=== PATIENT | female | born 1995 | race Two or more races ===

== ENCOUNTER 2021-09-04 16:15 | Outpatient (CLI) | payer OTHER, SELFPAY ==
[2021-09-04 18:16] LABS: Hemoglobin 13.4 g/dL (12.0-15.0); Mean Corp Hgb Conc 34.4 g/dL (32-36); Mean Corpuscular Volume 87.2 fL (81-99); Mean Platelet Vol. 9.6 fl (6.2-12.0); Platelet Count 320 K/mm3 (150-450); RBC Distribution Width CV 11.7 % (11.6-14.6); RBC Distribution Width SD 37.4 fl (35.1-43.9); Red Blood Count 4.47 M/mm3 (4.2-5.4); White Blood Count 6.1 K/mm3 (4.4-11.0)
[2021-09-04 18:41] LABS: Anion Gap 5 (5-15); BUN 19 mg/dL (7-18); BUN/Creat Ratio 18.4 RATIO (10-20); Calcium,Total 9.7 mg/dL (8.5-10.1); Chloride 102 mmol/L (98-107); Creatinine, Serum 1.03 mg/dL (0.55-1.02); EST Glomerular Filtration Rate 69 mL/min (>60); Est Glom Filt Rate - Afr Amer 84 mL/min (>60); Glucose 94 mg/dL (74-106); Potassium 3.8 mmol/L (3.5-5.1); Sodium Level 133 mmol/L (136-145)
== END 2021-09-04 23:59 | disposition home or self-care (01) ==
LOC: MFPLAB 16:19
PROVIDERS: PCP Family Medicine; Referring Provider Family Medicine; Visit Provider Family Medicine
DX: R55 Syncope and collapse (principal)
CPT/HCPCS: 36415; 80048; 83735; 84443; 85027

== ENCOUNTER → 2021-10-02 | Outpatient (CLI) | payer OTHER, SELFPAY ==
--- NOTE | 2021-10-02 13:56 | ECHOD_ITS ---
Reason For Study: SYNCOPE & COLLAPSE Procedure This was a 2D Doppler, Color Flow transthoracic echocardiogram. Exam performed in department. Left Ventricle Normal LV size. Left ventricular systolic function is normal. The estimated ejection fraction is 55 %. No regional wall motion abnormalities noted. Right Ventricle Normal RV size. Normal systolic function. Atria Normal left atrium. Normal right atrium. Bubble contrast study negative for right to left interatrial shunt. Mitral Valve Normal mitral valve. Trivial eccentric mitral valve insufficiency. Tricuspid Valve Normal tricuspid valve. Mild tricuspid valve insufficiency. Aortic Valve Normal aortic valve. Trisinus/trileaflet aortic valve. Pulmonic Valve Normal pulmonic valve. Great Vessels Normal aortic root. The pulmonary artery is normal size. Normal inferior vena cava. Pericardium/Pleural No pericardial effusion. Medication 22 gauge I.V. with prn adaptor inserted into left arm. Performed a rapid injection of agitated mix of 9 cc saline and 1cc air to assess for atrial septal defect. MMode/2D Measurements & Calculations LVIDd: 4.7 cm IVSd: 0.57 cm Ao root diam: 2.7 cm LVIDs: 3.2 cm LVPWd: 0.72 cm RVDd: 3.2 cm FS: 32.6 % LAV(MOD-bp): 29.8 ml LVAd ap4: 27.9 cm2 SV(MOD-sp4): 43.2 ml LAV(MOD-bp) Indexed: 17.6 ml/m2 LVLd ap4: 7.7 cm LAV(MOD-sp2): 30.4 ml EDV(MOD-sp4): 84.1 ml LAV(MOD-sp4): 28.4 ml EDV(sp4-el): 86.4 ml LVAs ap4: 17.6 cm2 LVLs ap4: 6.6 cm ESV(MOD-sp4): 40.9 ml ESV(sp4-el): 39.8 ml EF(MOD-sp4): 51.4 % EF(sp4-el): 54.0 % SV(sp4-el): 46.7 ml LA A4 area: 12.0 cm2 LA dimension(2D): 2.9 cm RA A4 area: 10.6 cm2 Time Measurements MV dec time: 0.21 sec Doppler Measurements & Calculations MV E max harinder: 83.1 cm/sec Lat Peak E' Harinder: 18.9 cm/sec Med Peak E' Harinder: 16.6 cm/sec MV A max harinder: 59.4 cm/sec E/E' lat: 4.4 E/E' med: 5.0 MV E/A: 1.4 Ao V2 max: 125.1 cm/sec LV V1 max: 103.2 cm/sec PA V2 max: 93.9 cm/sec Ao max P.3 mmHg LV V1 max P.3 mmHg TR max harinder: 209.3 cm/sec TR max P.5 mmHg ECHO/Echo Complete Interpretation Summary Normal LV size. Left ventricular systolic function is normal. The estimated ejection fraction is 55 %. Bubble contrast study negative for right to left interatrial shunt. Mild tricuspid valve insufficiency. Ordering Physician: Manjeet Jacobson Referring Physician: Manjeet Jacobson Performed By: Melita Oleary RDCS
== END | disposition home or self-care (01) ==
LOC: CVS 13:54
PROVIDERS: PCP Family Medicine; Referring Provider Family Medicine; Visit Provider Family Medicine
DX: Z00.00 Encounter for general adult medical examination without abnormal findings (principal); R55 Syncope and collapse
CPT/HCPCS: 93306; A4216

== ENCOUNTER → 2021-11-14 | Outpatient (CLI) | payer OTHER, SELFPAY ==
[2021-11-14 09:21] LABS: Absolute Lymphocyte Count 2.43 X10^3/uL (0.83-4.51); Absolute Neutrophil Count 2.3 X10^3/uL (2.0-7.7); Basophil# 0.05 X10^3/uL; Basophil% 0.9 % (0-1); Eosinophil# 0.12 X10^3/uL; Eosinophils% 2.2 % (0-5); Hematocrit 44.7 % (37-47); Hemoglobin 15.3 g/dL (12.0-15.0); Lymphocyte # 2.43 X10^3/ul (0.83-4.51); Lymphocyte % 45.4 % (19-41); Mean Corp Hgb Conc 34.2 g/dL (32-36); Mean Corpuscular Hgb 30.1 pg (27.0-32.0); Mean Platelet Vol. 9.2 fl (6.2-12.0); Monocyte% 7.5 % (0-10); NRBC Flagged by Analyzer 0 % (0-5); Neutrophil # 2.33 X10^3/uL (2.7-7.7); Neutrophil % 43.6 % (47-70); Platelet Count 325 K/mm3 (150-450); RBC Distribution Width CV 11.6 % (11.6-14.6); RBC Distribution Width SD 37.5 fl (35.1-43.9); Red Blood Count 5.08 M/mm3 (4.2-5.4); White Blood Count 5.4 K/mm3 (4.4-11.0)
[2021-11-14 09:42] LABS: Internal QC Validated? YES +Cl - CLEAR BKGD; Pregnancy, Serum, hCG Quali. NEGATIVE Negative
[2021-11-14 09:54] LABS: Anion Gap 4 (5-15); BUN 20 mg/dL (7-18); BUN/Creat Ratio 17.2 RATIO (10-20); Calcium,Total 9.7 mg/dL (8.5-10.1); Chloride 103 mmol/L (98-107); Creatinine, Serum 1.16 mg/dL (0.55-1.02); EST Glomerular Filtration Rate 60 mL/min (>60); Est Glom Filt Rate - Afr Amer 73 mL/min (>60); Glucose 98 mg/dL (74-106); Sodium Level 134 mmol/L (136-145)
--- NOTE | 2021-11-14 20:50 | PCM.TILTTABL ---
Summary Pre Test Resting HR: 84 Pre Test Resting BP: 110/73 Minimum Test HR: 47 Maximum Test HR: 166 Minimum Test BP: 0/0 Maximum Test BP: 116/69 Physician Tilt Table Report Patient's Physicians Primary Care Physician: Manjeet Jacobson Indications/Diagnosis: Syncope. Procedure Comments: The patient was brought to the noninvasive lab in the postabsorptive nonsedated state. Informed consent was obtained. Initial vital signs were obtained to the initial heart rate was 84 bpm which was in sinus rhythm with a blood pressure 110/73 mmHg. The patient was then placed in the 70 degree head upright tilt position for approximately 20 minutes. Patient tolerated the test well. Heart rate ranged between 84 and 122 bpm in sinus rhythm with a normal blood pressure with minimal symptomatology. The patient was then put back in the recumbent position and given sublingual nitroglycerin. Approximately 3 minutes after being put back in the head upright tilt position the patient was noted to have developed a narrow complex tachycardia with a rate of approximately 160 bpm which was sustaining consistent with an AV laura reentrant tachycardia. Patient was initially noted to be hypotensive with the above with blood pressure dropping significantly and then the heart rate subsequently breaking into a sinus rhythm and then on ectopic atrial rhythm before reverting back to sinus rhythm. The patient was put in the recumbent position with recovery of both blood pressure and heart rate. The final heart rate was 60 bpm and the blood pressure 115/78 mmHg. Summary: Tilt table test with evidence of supraventricular tachyarrhythmia symptomatic following sublingual nitroglycerin administration.
[2021-11-14 20:55] VITALS: BP 0/0; BP 110/73; BP 116/69
== END | disposition home or self-care (01) ==
PROVIDERS: PCP Family Medicine; Referring Provider Family Medicine; Visit Provider Family Medicine
DX: R55 Syncope and collapse (principal)
CPT/HCPCS: 36415; 80048; 84703; 85025; 93660; J7040; A4216

== ENCOUNTER 2022-04-02 07:49 | Day surgery (SDC) | payer BC, SELFPAY ==
--- NOTE | 2022-03-13 09:30 | RAD_ITS ---
STUDY: X-RAY CHEST REASON FOR EXAM: Female, 27 years old. palpitations TECHNIQUE: PA and lateral views of the chest. COMPARISON: None. FINDINGS: The lungs are clear and expanded. There is no demonstrated pleural abnormality. Normal size heart. Normal mediastinum and santa. Normal visualized pulmonary arteries. Normal visualized aortic arch and descending thoracic aorta. Normal visualized thoracic spine. Normal visualized ribs, clavicles, and shoulders. There is no demonstrated abnormality of the visualized soft tissue structures of the upper abdomen. RAD/Chest PA and Lateral IMPRESSION: Normal x-ray examination of the chest. Electronically Signed: Mike Stoner MD at 9:46 EDT ,
[2022-03-13 09:35] LABS: Absolute Lymphocyte Count 1.76 X10^3/uL (0.83-4.51); Absolute Neutrophil Count 4.5 X10^3/uL (2.0-7.7); Basophil# 0.03 X10^3/uL; Basophil% 0.4 % (0-1); Eosinophil# 0.07 X10^3/uL; Hematocrit 42.7 % (37-47); Hemoglobin 15.1 g/dL (12.0-15.0); Lymphocyte # 1.76 X10^3/ul (0.83-4.51); Lymphocyte % 25.3 % (19-41); Mean Corp Hgb Conc 35.4 g/dL (32-36); Mean Corpuscular Volume 87.7 fL (81-99); Mean Platelet Vol. 8.6 fl (6.2-12.0); Monocyte# 0.54 X10^3/uL; Monocyte% 7.7 % (0-10); NRBC Flagged by Analyzer 0 % (0-5); Neutrophil # 4.54 X10^3/uL (2.7-7.7); Neutrophil % 65.2 % (47-70); Platelet Count 338 K/mm3 (150-450); RBC Distribution Width CV 11.6 % (11.6-14.6); RBC Distribution Width SD 37.5 fl (35.1-43.9); Red Blood Count 4.87 M/mm3 (4.2-5.4)
[2022-03-13 09:49] LABS: Anion Gap 6 (5-15); BUN 21 mg/dL (7-18); BUN/Creat Ratio 16.4 RATIO (10-20); Calcium,Total 9.8 mg/dL (8.5-10.1); Chloride 101 mmol/L (98-107); Creatinine, Serum 1.28 mg/dL (0.55-1.02); EST Glomerular Filtration Rate 54 mL/min (>60); Est Glom Filt Rate - Afr Amer 65 mL/min (>60); Glucose 57 mg/dL (74-106); Potassium 4.3 mmol/L (3.5-5.1); Sodium Level 134 mmol/L (136-145)
[2022-04-01 10:07] VITALS: BMI 26.2
--- NOTE | 2022-04-01 17:48 | PCM.HP.BLA ---
History and Physical Date of Admission: 04/02/22 Bea Hanson is a 27-year-old lady with a history of recurrent near syncope.? She says that these episodes tend to occur at random times there is no evidence that she has palpitations before this.? She is almost able to tell it coming on and usually when she goes from sitting to standing.? It lasts just a few seconds.? She has been trying to keep up with her fluid intake.? As part of her work-up she underwent a tilt table test during which she developed a narrow complex tachycardia with a rate of approximately 160 bpm which was sustaining and consistent with an AV laura reentrant tachycardia.? The patient was noted to be hypotensive with the above rhythm.? She also had a Holter monitor placed for a week with an average heart rate of 75 bpm in sinus rhythm and minimum of 39 bpm and a maximum of 190 bpm which was also a narrow complex tachycardia.? Her echocardiogram demonstrates preserved left ventricular systolic function estimated EF of 55%.? She is here today for an EP study with possible ablation. Medications L norgest/E estradiol-E estrad 0.15 mg-30 mcg (84)/10 mcg(7) tabs,3mos (Camrese) 1 tab PO DAILY 12/23/21 [History Confirmed 12/23/21] spironolactone 100 mg tablet 100 mg PO DAILY 12/23/21 [History Confirmed 12/23/21] Ejection fraction %: 55 to 59 PFSH Medical History? AVNRT (AV laura re-entry tachycardia) Paroxysmal supraventricular tachycardia Syncope Family History? Mother Heart disease ?? ? MVP/palpitations ROS Const Const: Negative for fatigue, weakness, headache(s), frequent falls, difficulty sleeping or excessive sweating Eyes Eyes: Negative for loss of peripheral vision, transient loss of vision, blurry vision, double vision or tunnel vision ENT ENT: Positive for dizziness; Negative for headache(s), Nosebleed/epistaxis or balance problems Cardio Chest Pain: No Palpitations: Yes (occasional) feels like its: fast and skipping Edema: None Muscle aches with walking: None Resp Respiratory: Negative for SOB with activity, SOB at rest, SOB orthopnea\SOB lying down, Cough or paroxysmal nocturnal dyspnea GI GI: Negative nausea, vomiting, heartburn or black,tarry stools : Negative for hematuria Musc Musc: Negative for muscle aches/ myalgia, muscle weakness, joint pain or balance problems Skin Skin: Negative non-healing lesions, rash or unusual bruising Neuro Neuro: Positive for dizziness, lightheadedness, near syncope and syncope; Negative for orthostatic symptoms, frequent falls, headache(s), weakness, confusion, memory loss, blurry vision, double vision, vertigo or lack of coordination Jose Hematologic/Lymphatic: Negative for easy bleeding or easy bruising Endo Endo: Negative for fatigue, excessive sweating, flushing or increased thirst/drinking Psych Psych: Negative for anxiety or depression Allergy Allergy/Immunology: Negative for hives and Negative for rash Cardiology Exam Const Appearance: cooperative, healthy appearing, no acute distress, well developed and well groomed Nutritional Appearance: average body habitus and well nourished Orientation: alert, awake and oriented x3 Head Head: normal to inspection, normocephalic and atraumatic Ears: hearing grossly normal bilaterally and external ears normal Nose: external nose normal, nares normal, nasal mucous membranes and turbinates normal, septum normal and no nasal discharge Face and Sinus: face symmetric Mouth: oral mucosae normal, tongue normal, oropharynx normal and moist mucous membranes Teeth and gingiva: dentition normal Throat: posterior oropharynx normal, tonsils normal and uvula midline Eyes General: appearance normal, both eyes and all related structures Eyelids: eyelids normal Conjunctivae: conjunctivae normal Pupils: PERRL, normal by confrontation and accommodation normal EOM: EOM intact bilaterally Neck Neck: normal visual inspection, trachea midline and no JVD JVD: +5 Carotids: normal carotid upstroke and bounding pulses Chest Chest inspection: normal inspection of the chest, symmetric chest movement and normal respiratory effort Auscultation: Bilateral: Clear to Auscultation Cardio Palpation: normal PMI Rate: regular rate Rhythm: regular rhythm Heart sounds: S1 normal, S2 normal and normal, physiologic split S2; Negative rub, gallop or murmur GI GI: normal to inspection, soft, no hepatosplenomegaly and bowel sounds present Neuro General: patient alert, patient awake, patient oriented x3, gait normal, moves all extremities and no focal sensory deficit Skin Skin: no rashes or lesions noted Extremities Pulses: Normal: Right Femoral Pulse, Left Femoral Pulse, Right Dorsalis Pedis Pulse, Left Dorsalis Pedis Pulse, Right Posterior Tibial Pulse, Left Posterior Tibial Pulse, Right Radial Pulse and Left Radial Pulse Lower Extremity Edema: None: Bilateral Musculoskel Musculoskeletal: No joint tenderness Psych Psychological: normal affect Supplemental Info Supplemental Information Physician Tilt Table Report? 11/14/2021 Indications/Diagnosis: Syncope. Procedure Comments: The patient was brought to the noninvasive lab in the postabsorptive nonsedated state.? Informed consent was obtained.? Initial vital signs were obtained to the initial heart rate was 84 bpm which was in sinus rhythm with a blood pressure 110/73 mmHg.? The patient was then placed in the 70 degree head upright tilt position for approximately 20 minutes.? Patient tolerated the test well.? Heart rate ranged between 84 and 122 bpm in sinus rhythm with a normal blood pressure with minimal symptomatology.? The patient was then put back in the recumbent position and given sublingual nitroglycerin.? Approximately 3 minutes after being put back in the head upright tilt position the patient was noted to have developed a narrow complex tachycardia with a rate of approximately 160 bpm which was sustaining consistent with an AV laura reentrant tachycardia.? Patient was initially noted to be hypotensive with the above with blood pressure dropping significantly and then the heart rate subsequently breaking into a sinus rhythm and then on ectopic atrial rhythm before reverting back to sinus rhythm.? The patient was put in the recumbent position with recovery of both blood pressure and heart rate.? The final heart rate was 60 bpm and the blood pressure 115/78 mmHg. Summary:?Tilt table test with evidence of supraventricular tachyarrhythmia symptomatic following sublingual nitroglycerin administration. ECHOCARDIOGRAM? 10/02/2021 Interpretation Summary Normal LV size. Left ventricular systolic function is normal. The estimated ejection fraction is 55 %. Bubble contrast study negative for right to left interatrial shunt. Mild tricuspid valve insufficiency. ? Labs: ?? ? LDL Cholesterol 109 mg/dL (0-130) ?? ? HDL Cholesterol 49 mg/dL (40-) ?? ? Triglycerides 71 mg/dL (-199) ?? ? VLDL Cholesterol 14 mg/dL (5-40) Diagnostics: ?? ? Cardiac Tilt Table Test ? Echocardiogram ? Pulmonary: ?? ? No Data to Display Assessment and Plan Assessment and Plan (1) AVNRT (AV laura re-entry tachycardia): ? ? ? She appears to have an AV laura reentrant tachycardia.? Her ejection fraction is noted to be normal by echocardiogram.? I do not think that she also has vasodepressor syncope.? I would recommend that we consider an EP study with ablation.? She will be seen by the salesperson hosiery Dr. Anguiano on the day of the procedure she will be further counseled and the ablation procedure undertaken. Follow up will be based on findings. Assessment & Plan Assessment/Plan (1) AVNRT (AV laura re-entry tachycardia):
[2022-04-02 08:09] LABS: Internal QC Validated? YES +Cl - CLEAR BKGD; Pregnancy, Urine Negative Negative
--- NOTE | 2022-04-02 10:56 | ELECTROSTU_ITS ---
Electrophysiology Report Electrophysiology Report Patient was brought to the electrophysiology procedure unit at [facility] for evaluation of concern for SVT. This was noted to be occurring on a tilt table test. There is no structural heart disease. After informed consent the patient was prepped and draped in usual sterile ma nner on the right groin as well as the left groin. Intermittent boluses of Versed and fentanyl were used for sedation analgesia as well as 1% lidocaine. Measurements SD 250 QRS 85 QT 410 Baseline measurements Sinus cycle length 880 AH 190 HV 4 0 Maximum SNRT equals 1300 CSNRT equals 420 AVBCLCL equals 390 VA BCL equals 370 there is decremental and concentric retrograde conduction the AV node ERP is less than [address] cycle length of 600. There is no inducible tachycardia. There is no dual AV node physiology. There is no AV laura jump. There is no accessory pathway or preexcitation. Testing on 3 mcg of isoproterenol. Sinus cycle length is 460 the AH equals 140 HV equals 40 AV block cycle length equals 230 the VA block cycle length equals 230 there is decremental and concentric retrograde conduction. The AV node ERP is less than [address] cycle length 360 extra stimulation of the atrium was completed as well as the ventricle and there was no dual AV node physiology there was no AV laura jump there was no AV laura echo beats. There is no inducible tachycardia.
== END 2022-04-02 14:40 | disposition home or self-care (01) ==
PROVIDERS: Internal Medicine Cardiovascular Disease; PCP Family Medicine; Referring Provider Internal Medicine Cardiovascular Disease; Visit Provider Internal Medicine Cardiovascular Disease
DX: I47.1 Supraventricular tachycardia (principal)
CPT/HCPCS: 36415; 71046; 80048; 81025; 85025; 93620; 93623; 99152; 99153; C1730; C1894; J7040

== ENCOUNTER → 2022-08-06 | Outpatient (CLI) | payer BC, SELFPAY ==
[2022-08-06 15:46] LABS: Hematocrit 41.9 % (37-47); Hemoglobin 13.9 g/dL (12.0-15.0); Mean Corp Hgb Conc 33.2 g/dL (32-36); Mean Corpuscular Hgb 29.8 pg (27.0-32.0); Mean Corpuscular Volume 89.7 fL (81-99); Mean Platelet Vol. 9.6 fl (6.2-12.0); Platelet Count 368 K/mm3 (150-450); RBC Distribution Width CV 11.9 % (11.6-14.6); RBC Distribution Width SD 38.5 fl (35.1-43.9); Red Blood Count 4.67 M/mm3 (4.2-5.4); Vitamin B12 326 pg/mL (211-911); Vitamin D,25 Hydroxy 37.9 ng/mL
[2022-08-06 15:51] LABS: Erythrocyte Sedimentation Rate 8 mm/hr (0-30)
[2022-08-06 15:53] LABS: AST(SGOT) 17 U/L (15-37); Alanine Aminotransfer ALT/SGPT 19 U/L (13-56); Albumin, Serum 3.6 g/dL (3.2-5.0); Alkaline Phosphatase 35 U/L (45-117); Anion Gap 8 (5-15); BUN 19 mg/dL (7-18); BUN/Creat Ratio 18.3 RATIO (10-20); Calcium,Total 9.4 mg/dL (8.5-10.1); Chloride 104 mmol/L (98-107); Creatinine, Serum 1.04 mg/dL (0.55-1.02); EST Glomerular Filtration Rate 68 mL/min (>60); Est Glom Filt Rate - Afr Amer 82 mL/min (>60); Globulin 3.5 g/dL (2.2-4.2); Glucose 78 mg/dL (74-106); Iron 86 ug/dL (50-170); Potassium 4.1 mmol/L (3.5-5.1); Protein, Total 7.1 g/dL (6.4-8.2); Sodium Level 136 mmol/L (136-145)
[2022-08-08 13:02] LABS: ANTINUCLEAR ANTIBODIES DIRECT Negative (Negative)
== END | disposition home or self-care (01) ==
LOC: MFPLAB 11:22
PROVIDERS: PCP Family Medicine; Referring Provider Family Medicine; Visit Provider Family Medicine
DX: R53.83 Other fatigue (principal)
CPT/HCPCS: 36415; 80053; 82306; 82607; 83540; 84443; 85027; 85652; 86038; 86225; 86235

== ENCOUNTER → 2024-02-14 | Outpatient (CLI) | payer BC, SELFPAY ==
[2024-02-14 15:42] LABS: Absolute Lymphocyte Count 1.82 X10^3/uL (0.83-4.51); Absolute Neutrophil Count 4.5 X10^3/uL (2.0-7.7); Basophil# 0.09 X10^3/uL; Basophil% 1.2 % (0-1); Eosinophil# 0.13 X10^3/uL; Eosinophils% 1.8 % (0-5); Hematocrit 37.4 % (37-47); Hemoglobin 12.4 g/dL (12.0-15.0); Lymphocyte # 1.82 X10^3/ul (0.83-4.51); Lymphocyte % 25.1 % (19-41); Mean Corp Hgb Conc 33.2 g/dL (32-36); Mean Corpuscular Hgb 28.9 pg (27.0-32.0); Mean Corpuscular Volume 87.2 fL (81-99); Mean Platelet Vol. 9.5 fl (6.2-12.0); Monocyte# 0.47 X10^3/uL; Monocyte% 6.5 % (0-10); NRBC Flagged by Analyzer 0 % (0-5); Neutrophil # 4.46 X10^3/uL (2.7-7.7); Neutrophil % 61.4 % (47-70); Platelet Count 438 K/mm3 (150-450); RBC Distribution Width CV 11.8 % (11.6-14.6); RBC Distribution Width SD 37.6 fl (35.1-43.9); Red Blood Count 4.29 M/mm3 (4.2-5.4); White Blood Count 7.3 K/mm3 (4.4-11.0)
[2024-02-14 16:03] LABS: ALB/GLOB Ratio 1.2 RATIO (0.9-2.4); AST(SGOT) 18 U/L (15-37); Alanine Aminotransfer ALT/SGPT 21 U/L (13-56); Albumin, Serum 3.8 g/dL (3.2-5.0); Alkaline Phosphatase 39 U/L (45-117); Anion Gap 8 (5-15); BUN 13 mg/dL (7-18); BUN/Creat Ratio 13.2 RATIO (10-20); Calcium,Total 9.3 mg/dL (8.5-10.1); Chloride 104 mmol/L (98-107); Creatinine, Serum 0.98 mg/dL (0.55-1.02); EST Glomerular Filtration Rate 71 mL/min (>60); Est Glom Filt Rate - Afr Amer 86 mL/min (>60); Globulin 3.2 g/dL (2.2-4.2); Glucose 83 mg/dL (74-106); Potassium 3.8 mmol/L (3.5-5.1); Sodium Level 137 mmol/L (136-145)
[2024-02-14 16:22] LABS: Erythrocyte Sedimentation Rate 2 mm/hr (0-30)
== END | disposition home or self-care (01) ==
PROVIDERS: PCP Family Medicine; Referring Provider Family Medicine; Visit Provider Family Medicine
DX: M25.50 Pain in unspecified joint (principal)
CPT/HCPCS: 36415; 80053; 84443; 85025; 85652; 86140

== ENCOUNTER → 2024-08-04 | Outpatient (CLI) | payer OTHER, SELFPAY ==
--- NOTE | 2024-08-04 16:27 | RAD_ITS ---
PROCEDURE: CHEST PA AND LATERAL REASON FOR EXAM: COUGH TECHNIQUE: Two-view chest COMPARISON: 2021 FINDINGS: Mild bronchial thickening. No localizing infiltrate, effusion or pneumothorax. Normal heart size and mediastinum RAD/Chest PA and Lateral IMPRESSION: Bronchial thickening. Query bronchitis. No localizing infiltrate. Reading Location: [id number]
== END | disposition home or self-care (01) ==
LOC: MTRAD 16:27
PROVIDERS: PCP Family Medicine; Referring Provider Family Medicine; Visit Provider Family Medicine
DX: R05.9 Cough, unspecified (principal)
CPT/HCPCS: 71046

== ENCOUNTER → 2024-09-27 | Outpatient (CLI) | payer OTHER, SELFPAY ==
[2024-09-27 08:04] LABS: Anion Gap 10 (5-15); BUN 13 mg/dL (4-19); Calcium,Total 9.2 mg/dL (7.6-11.0); Carbon Dioxide 24.4 mmol/L (21.0-32.0); Chloride 103 mmol/L (98-108); Creatinine, Serum 1.11 mg/dL (0.70-1.20); EST Glomerular Filtration Rate 69 (>60); Glucose 91 mg/dL (70-99); Magnesium 2.1 mg/dL (1.5-2.2); Potassium 4.4 mmol/L (3.3-5.1); Sodium Level 138 mmol/L (133-145)
== END | disposition home or self-care (01) ==
LOC: LAB 06:31
PROVIDERS: PCP Family Medicine; Referring Provider Student in an Organized Health Care Education/Training Program; Visit Provider Student in an Organized Health Care Education/Training Program
DX: I47.19 Other supraventricular tachycardia (principal)
CPT/HCPCS: 36415; 80048; 83735; 84443